=== PATIENT | female | born 1955 | race Caucasian/White ===

== ENCOUNTER 2023-03-09 16:24 | Outpatient (CLI) | payer MEDICARE, SELFPAY ==
--- NOTE | ~2023-03-09 | CT_ITS ---
EXAMINATION: CT LE RT wo con DATE: 03/09/2023 16:43 INDICATION: Right knee osteoarthritis. Preoperative planning. TECHNIQUE: Computed tomography (CT) of the right lower limb was performed without intravenous contras t. Automated exposure control and iterative reconstruction technique were employed. The dose-length p roduct was 1725.33 mGy-cm. COMPARISON: Right knee radiographs 02/15/2023 FINDINGS: The right hip demonstrates normal bone alignment. No fracture. There is mild right hip oste oarthritis. The right knee demonstrates severe osteoarthritis of the medial, lateral, and patellofemo ral compartments. There is a small knee joint effusion. There is instrumentation of right first metat arsal. IMPRESSION: 1. Severe right knee osteoarthritis. 2. Small right knee joint effusion. 3. Mild right hip osteoarthritis. Reviewed, dictated and finalized at location E.
== END 2023-03-09 16:25 | disposition home or self-care (01) ==
LOC: ANHIMG 16:28
PROVIDERS: Visit Provider Orthopaedic Surgery
DX: M17.11 Unilateral primary osteoarthritis, right knee (principal); M25.461 Effusion, right knee; M16.11 Unilateral primary osteoarthritis, right hip
CPT/HCPCS: 73700

== ENCOUNTER 2023-03-22 08:52 | Outpatient (CLI) | payer MEDICARE, SELFPAY ==
--- NOTE | 2023-03-22 09:23 | ECG_ITS ---
Measurements Intervals [place] Rate: 65 P: 42 SD: 178 QRS: 24 QRSD: 86 T: 5 QT: 401 QTc: 419 Interpretive Statements SINUS RHYTHM NO PREVIOUS ECG AVAILABLE FOR COMPARISON Electronically Signed On 03-22-2023 12:58:36 CDT by Shelly Amado M.D.
[2023-03-22 09:45] LABS: Hematocrit 39.9 % (37.0-47.0); Hemoglobin 12.9 g/dL (12.0-15.0)
[2023-03-22 09:56] LABS: Albumin Level 4.6 g/dL (3.5-5.1); Estimated Glomerular Filt Rate > 60
== END 2023-03-22 08:53 | disposition home or self-care (01) ==
PROVIDERS: Visit Provider Orthopaedic Surgery
DX: Z01.812 Encounter for preprocedural laboratory examination (principal); Z01.810 Encounter for preprocedural cardiovascular examination; M17.11 Unilateral primary osteoarthritis, right knee
CPT/HCPCS: 36415; 82040; 82565; 85014; 85018; 93005

== ENCOUNTER 2023-05-30 08:12 | Outpatient (CLI) | payer MEDICARE, SELFPAY ==
[2023-05-30 09:48] LABS: Basophils Percent Auto 0.5 % (0.2-1.2); Eosinophils Absolute Auto 0.1 K/mm3 (0-0.3); Eosinophils Percent Auto 0.9 % (0-4.4); Hematocrit 40.1 % (37.0-47.0); Hemoglobin 13.2 g/dL (12.0-15.0); Immature Granulocyte Absolute 0.02 K/mm3 (0.00-0.031); Immature Granulocyte Percent A 0.3 % (0-0.5); Lymphocytes Absolute Auto 1.85 K/mm3 (0.9-3.2); Lymphocytes Percent Auto 24.9 % (18.3-44.2); Mean Corpuscular HGB Conc 32.9 g/dl (32-36); Mean Corpuscular Volume 94.1 fl (80-100); Mean Platelet Volume 10.1 fl (7.4-10.4); Monocytes Absolute Auto 0.7 K/mm3 (0.1-0.6); Monocytes Percent Auto 9.4 % (2.6-8.5); Neutrophils Absolute Auto 4.8 K/mm3 (1.3-6.7); Platelet Count Result 256 k/mm3 (150-375); Red Blood Count 4.26 M/mm3 (4.2-5.4); Red Cell Distribution Width 13.9 % (11.5-14.5); White Blood Count 7.4 K/mm3 (4.5-10.0)
[2023-05-30 09:58] LABS: Albumin Level 4.5 g/dL (3.5-5.1); Estimated Glomerular Filt Rate > 60; Glucose 91 mg/dL (65-110)
[2023-05-30 10:03] LABS: Urine Cotinine NEGATIVE
[2023-05-30 10:17] LABS: Hemoglobin A1C 5.5 % (<5.7)
== END 2023-05-30 08:13 | disposition home or self-care (01) ==
LOC: ANHSURGERY 08:18
PROVIDERS: Visit Provider Orthopaedic Surgery
DX: M17.11 Unilateral primary osteoarthritis, right knee (principal); Z01.818 Encounter for other preprocedural examination
CPT/HCPCS: 80307; 82040; 82565; 82947; 83036; 85025; 87081

== ENCOUNTER 2023-06-19 01:38 | Day surgery (SDC) | payer MEDICARE, SELFPAY ==
--- NOTE | 2023-05-30 07:41 | PC.NURSE ---
PRE-OP INSTRUCTIONS, PLEASE READ CAREFULLY Report to the Outpatient Waiting Room, entrance under the green pavilion located off [facility], at time _0930_ on date _06/19/23_. Planned Procedure Time: _1130_. PACK A SMALL OVERNIGHT BAG AND LEAVE IN THE CAR ALONG WITH YOUR WALKER Time changes happen often and if your time is changed the preop area will call you the afternoon before. - You and your visitor will be asked to self-screen and do not enter if you have any COVID symptoms. - A mask is optional within the hospital at this time. -VISITING HOURS 8AM-8PM Patients may have clear liquids (water, carbonated beverages, clear teas, apple juice) until 3 hours prior to surgery (0830 AM) with a maximum of 20 ounces. - No food from midnight until time of surgery Take the following medications with a SIP of water the morning of surgery: _TYLENOL IF NEEDED_ DO NOT STOP ANY OF YOUR OTHER PRESCRIPTION MEDICATIONS PRIOR TO SURGERY ?EXCEPT THE FOLLOWING Medications to discontinue per DR. LOAIZA - _ALEVE 7 DAYS PRIOR TO SURGERY, Date to take last dose 06/11/23_ Medications to discontinue per ANESTHESIA - _MULTIVITAMIN & SUPPLEMENTS 3 DAYS PRIOR TO SURGERY, Date to take last dose 06/15/23_ Please no make-up, nail romanian, hairspray, perfume, deodorant, or body powder the day of surgery. No jewelry (including any body piercings) or valuables the day of surgery, leave them at home. Please take a shower or bath the night before, or the morning of, surgery with an antibacterial soap. Wear comfortable, loose fitting clothing. - Jewelry must be removed prior to entering the operating room. Rings and piercings that are not removed may be cut off. - The hospital will not accept responsibility for valuables. - Please leave all valuables, including medications, at home the day of surgery. If you are going home after surgery, a licensed limb driver must drive you home. - NO public transportation without another adult if you receive anesthesia. - We recommend that an adult stay with you for 24 hours following discharge. - We also recommend that you do not drive, make important decision, drink alcoholic beverages, or take any drugs that were not prescribed by your health care provider for at least 24 hours after your discharge time. Follow any additional instructions given to you from your surgeon. TOTAL JOINT CLASS TODAY (05/30/23) @ 10AM, [facility] ENTRANCE 2 - LOWER LEVEL If you or anyone in your household have experienced Covid symptoms in the past week, please notify your surgeon or the nurse liaison at the phone number below for possible testing. Instructions given to _PATIENT_and asked if any additional questions and then verbalized understanding. Patient advised to call surgeon office or pre surgery nurse liaison [phone] if any additional questions.
[2023-05-30 08:35] VITALS: BP 134/62; PULSE 78; RESP 18; TEMP 37.6; O2SAT 100; BMI 29.0
--- NOTE | 2023-06-18 15:48 | WPDANESEPPF ---
Anes - Initial Pre Proc Eval Procedure: Operation Date: 06/19/23 10:30 Proposed Procedures p Right Custom Total Knee Arthroplasty - Siva Méndez MD Date/Time: 06/18/23 15:48 Surgeon: Siva Méndez MD Pre Op Diagnosis: primary oa right knee Patient Data Age: 68 Gender: F Height: 1.63 m Weight: 76.6 kg Last Vital Signs Temp 37.6 C 05/30/23 08:35 Pulse 78 05/30/23 08:35 Resp 18 05/30/23 08:35 BP 134/62 05/30/23 08:35 Pulse Ox 100 05/30/23 08:35 O2 Del Method Room Air 05/30/23 08:35 Allergies Allergy/AdvReac Type Severity Reaction Status Date / Time No Known Allergies Allergy Unverified 06/19/23 08:28 Home Medications Medication Instructions Recorded Confirmed Type multivitamin 1 tablet PO DAILY 02/15/23 06/01/23 History acetaminophen 500 mg tablet 500 mg PO Q6H PRN Pain 05/30/23 06/01/23 History krill oil 1 tab-cap DAILY 05/30/23 06/01/23 History naproxen sodium 220 mg tablet 220 mg PO BID PRN Pain 05/30/23 06/01/23 History (Aleve) Patient hx anesthesia problems: none Family hx anesthesia problems: none Results Review: All pre-operative results and documents have been reviewed as part of the pre-operative evaluation. [facility] Past Medical History Medical History History of postoperative nausea and vomiting Surgical History Surgical History History of abdominoplasty History of bunionectomy History of tonsillectomy Family History Family History Grandparent Acute myocardial infarction Mother Family history of congestive heart failure Unknown Arthritis Cancer Other Diabetes mellitus Family history of arthritis Family history of malignant neoplasm of uterus Social History Social History Smoking status: Never smoker Second hand tobacco smoke exposure: No Additional smoking assessment comments: PT DENIES ALL FORMS OF TOBACCO USE Alcohol intake: current Drinks per week: 3 Alcohol use details: WINE Substance use: never Substance use type: does not use Do You Feel Safe in your Home?: Yes Lack of Transportation: No Lack of Food: Never True Current Housing: I Have Housing Concerned About Future Housing: No Difficulty Paying Gas/Electric Bills: No Difficulty Paying for Meds: No Currently Unemployed: No Education: High School Diploma/GED Difficulty w/ Childcare or Family Care: No Living arrangements: alone Additional living arrangements comments: STAYING WITH GINNA MEY[facility] OP Spiritual care concerns: No Anes - Eval Final PreProcedure Day of Procedure 06/18/23 15:48 Patient weight: overweight Heart: regular rate and rhythm Lungs: clear to auscultation Airway: Mallampati scale class II Neurological: alert and oriented Last oral intake: >/= 8 hours ASA classification: II Emergent: no Anesthetic plan: proceed Anesthesia type and monitoring: general LMA and standard monitoring Results Review: All pre-operative results and documents have been reviewed as part of the pre-operative evaluation. Informed Consent: The patient's anesthetic plan and its attendant risks and benefits were discussed with the patient/family/POA. Questions were solicited and answers provided to the satisfaction of the patient/family/POA.
[2023-06-19] VITALS (13 sets, daily range): BP systolic 124–146; BP diastolic 59–73; PULSE 67–84; RESP 12–18; TEMP 35.6–37.4; O2SAT 92–100
--- NOTE | ~2023-06-19 | XR_ITS ---
EXAMINATION: [id number] DATE: 06/19/2023 12:58 LIFE SCIENCE RESEARCH ASSISTANT INDICATION: Right total knee arthroplasty TECHNIQUE: 2 views right knee FINDINGS: There is a right total knee arthroplasty in expected position. Subcutaneous gas with fluid and air in the joint are consistent with recent surgery. No evidence of periprosthetic fracture. IMPRESSION: 1. Recent right total knee arthroplasty. Reviewed, dictated and finalized at location L. SCIENCE RESEARCH ASSISTANT
[2023-06-19] MEDS: ACETAMINOPHEN 500 MG TABLET 1000 MG PO ×3 (08:45→20:52)
[2023-06-19] MEDS: LACTATED RINGERS 1,000 ML 30 ML IV CONT ×2 (08:50→12:38)
[2023-06-19] MEDS: SCOPOLAMINE 1 MG PATCH 1 PATCH TRANSDERM (09:11)
[2023-06-19] MEDS: TRANEXAMIC ACID 1,000MG/ISO100 1,000 MG/100 ML BAG 200 MG IVPB (09:46)
--- NOTE | 2023-06-19 10:09 | WPDANESPNB ---
Anes - Peripheral Nerve Block Date/Time: 06/19/23 10:09 I have discussed with the patient/family/POA the placement of a peripheral nerve block for post-operative pain management, including associated risks, benefits, complications, and side effects. Alternative methods of post-operative analgesia were detailed. Questions were solicited and answers provided to the satisfaction of the patient/family/POA. Time-Out: A pre-procedural Time-Out was completed immediately before starting the procedure and confirmed: Patient Identification, Site, Procedure, Patient Position and the Availability of Requisite Equipment. Clinical Indications: Acute post-operative pain management requested by the operative surgeon. Nerve Block Insertion Note Anes-nerve block: adductor canal right Patient position: supine Skin prep: chlorhexidine Needle: 22 gauge, stimulating, insulated echogenic needle. Needle length: 80 mm Technique: ultrasound Injectate: bupivacaine 0.5% with epi 5 mcg/ml (30cc - no epi) Observations: tolerated well Complications: none Procedure start time:: 1013 Procedure end time:: 1016
--- NOTE | 2023-06-19 10:17 | WPDHPUPDATE1 ---
History and Physical Update Update Date/Time: 06/19/23 10:17 History and Physical has been reviewed, including an updated exam of the patient. There are NO changes in the patient's condition. Risks, benefits, and alternatives have been discussed and questions answered. Patient agrees to proceed with procedure.
[2023-06-19] MEDS: ceFAZolin 2 GM/D5W 50 ML 2 GM/50 ML BAG IVPB ×2 (10:24→17:47)
[2023-06-19] MEDS: GENTAMICIN BONE CEMENT REFOBACIN 2 EACH TOPICAL (11:00)
[2023-06-19] MEDS: fentaNYL CITRATE INJ (*CRX) 100 MCG/2 ML VIAL 25 MCG IV PUSH ×4 (12:46→13:12)
--- NOTE | 2023-06-19 12:56 | W.PM.PROC2 ---
Procedure Note - Detailed Date of Procedure 06/19/23 Pre-op Diagnosis primary oa right knee Post-op Diagnosis Same Procedure Performed Total knee arthroplasty, right. Surgeon Siva Méndez MD Anesthesia General and Regional (Subsartorial block.) Findings Severe hypertrophic disease with contracture 20-100 degrees. Osteophytes removed. Moderate medial release. Custom jigs fit optimally. Bone resections as planned. Description of Procedure Preoperative antibiotics were given. The limb was prepped and draped in the usual sterile fashion with a well-padded tourniquet high on the thigh. The limb was exsanguinated and the tourniquet inflated to 300 mmHg. A longitudinal incision was created just medial to the patella. A trivector approach to the knee was performed. Arthrotomy was taken down through the joint capsule. No significant releases were initially taken. The femur was exposed and the F1 jig was applied. The coring tool was used to remove the cartilage for the F2 jig to sit flush with the bone. The jig was pinned and the distal cut carefully taken. Caliper measurements confirmed appropriate bony resections according to the preoperative templated plan. The F4 cutting jig for the femur was applied, at the standard rotation. The AP and anterior chamfer cuts were taken. The F5 jig was applied and the posterior chamfer cuts were taken. The tibia was prepared using the T1 jig, after removing cartilage for the jig contact points. Proper alignment was checked with the alignment manny. The tibia was cut using the T1u guide. Gap balancing was performed. Gap measurements were taken and the knee was trialed. Excellent alignment and soft tissue balancing was confirmed. The posterior cruciate ligament was recessed along the proximal tibia. The patella was cut for resurfacing. Three lug holes were drilled. Meniscal remnants were removed. The trial components were assembled. Excellent range of motion and proper soft tissue balancing were confirmed throughout the full range of motion. Patellar tracking was excellent. The knee was copiously irrigated periodically throughout the procedure. The real implants were cemented into position. Excess cement was carefully removed. The wound was closed in layers with interrupted #1 Vicryl suture, #1 strata fix suture, 3-0 strata fix suture, 4-0 strata fix suture. Steri-Strips placed on the skin with the knee flexed. Sterile bulky dressing applied. The patient was brought to the recovery room in stable condition. There were no complications. Implants [employer] total knee arthroplasty. Cemented. Cruciate retaining. 8 mm insert. 35 mm oval patella. Estimated Blood Loss 20 Drains No Complications No immediate complications Condition Stable Disposition PACU [facility] Billing Surgery - Charge Forward: Surgery Billing
[2023-06-19] MEDS: SODIUM CHLORIDE 0.9% IV 1,000 ML 125 ML IV CONT (14:58)
[2023-06-19] MEDS: SENNA/DOCUSATE SODIUM TABLET 2 TAB PO (17:48)
[2023-06-19] MEDS: ASPIRIN 81 MG ENTERIC TABLET PO (17:48)
[2023-06-19] MEDS: oxyCODONE HCL (*CRX) 5 MG TAB IR PO (20:53)
[2023-06-19] MEDS: FAMOTIDINE 20 MG TABLET PO (20:53)
[2023-06-20] MEDS: ACETAMINOPHEN 500 MG TABLET 1000 MG PO ×2 (02:48→08:36)
[2023-06-20] MEDS: ceFAZolin 2 GM/D5W 50 ML 2 GM/50 ML BAG IVPB ×2 (02:49→09:19)
[2023-06-20] MEDS: oxyCODONE HCL (*CRX) 5 MG TAB IR PO (06:00)
[2023-06-20 06:05] VITALS: BP 132/82; PULSE 64; RESP 16; TEMP 36.8; O2SAT 16
[2023-06-20 06:49] LABS: Anion Gap 4 mmol/L (8-16); Blood Urea Nitrogen 13 mg/dL (7-17); Calcium 8.8 mg/dL (8.4-10.2); Carbon Dioxide 31 mmol/L (22-30); Chloride 103 mmol/L (98-107); Estimated CRCL calculation 51 ml/min; Estimated Glomerular Filt Rate > 60; Glucose 93 mg/dL (65-110); Potassium 4.8 mmol/L (3.4-5.0); Sodium 138 mmol/L (137-145)
[2023-06-20 06:55] LABS: Basophils Percent Auto 0.4 % (0.2-1.2); Eosinophils Absolute Auto 0.4 K/mm3 (0-0.3); Eosinophils Percent Auto 4.1 % (0-4.4); Hematocrit 34.6 % (37.0-47.0); Hemoglobin 11.2 g/dL (12.0-15.0); Immature Granulocyte Absolute 0.04 K/mm3 (0.00-0.031); Immature Granulocyte Percent A 0.4 % (0-0.5); Lymphocytes Absolute Auto 1.95 K/mm3 (0.9-3.2); Lymphocytes Percent Auto 19.1 % (18.3-44.2); Mean Corpuscular HGB Conc 32.4 g/dl (32-36); Mean Corpuscular Hemoglobin 30.8 pg (26-34); Mean Corpuscular Volume 95.1 fl (80-100); Mean Platelet Volume 10.3 fl (7.4-10.4); Monocytes Absolute Auto 1.3 K/mm3 (0.1-0.6); Monocytes Percent Auto 12.2 % (2.6-8.5); Neutrophils Absolute Auto 6.5 K/mm3 (1.3-6.7); Neutrophils Percent Auto 63.8 % (45.5-73.1); Platelet Count Result 242 k/mm3 (150-375); Red Blood Count 3.64 M/mm3 (4.2-5.4); Red Cell Distribution Width 13.4 % (11.5-14.5); White Blood Count 10.2 K/mm3 (4.5-10.0)
[2023-06-20 07:37] VITALS: BP 100/61; PULSE 70; RESP 16; TEMP 35.9; O2SAT 100
--- NOTE | 2023-06-20 08:09 | PM.DS ---
DS: Admitting Diagnosis Discharge Date 06/20/22 Admitting Diagnosis OA knee Right DS: Discharge Diagnosis Discharge Diagnosis (1) Status post total right knee replacement: Code(s): Z96.651 - Presence of right artificial knee joint Status: Acute Assessment and Plan: Postop day 1: Right total knee arthroplasty. Patient tolerated procedure well. No complications. Pain manageable with pain medication. No numbness or tingling. We had a lengthy discussion regarding postoperative wound care, limitations, expectations, and exercises. Patient shows good understanding. She has had initial physical therapy and is tolerating it well. DVT prophylaxis: 81 mg baby aspirin b.i.d. for 14 days. Compression socks. Pain medication: Percocet. Naproxen. Prednisone. Patient has followup appointment with Dr. Méndez in 3 weeks. DS: Summary Hospital Course Reason for hospitalization: Total knee arthroplasty Hospital Course: Patient tolerated procedure well. Has had initial PT/OT. No complications. Pain well managed. Status at Discharge Functional status at discharge: uses cane/walker Overall status at discharge: patient is progressing back to baseline Time Spent with Patient Time attestation: Total time spent providing and/or coordinating discharge services: Exam Narrative: Normal weight 68 y/o female. Resting comfortably in bed. No acute distress. A&O x3. Wearing compression socks bilaterally. Dressing intact with no drainage. Moderate swelling. Mild ecchymosis. No erythema. No hematoma. Good early range of motion. Calf nontender. Neurologic status intact. No varicosities. Distal pulses palpable. Quad fires. DS: Data Data Completed and Pending Labs on day of discharge: Labs from last 24 hours 06/20/23 06/19/23 06:04 08:37 WBC 10.2 H RBC 3.64 L Hgb 11.2 L Hct 34.6 L MCV 95.1 MCH 30.8 MCHC 32.4 RDW 13.4 Plt Count 242 MPV 10.3 Immature Gran % (Auto) 0.4 Neut % (Auto) 63.8 Lymph % (Auto) 19.1 Pratt % (Auto) 12.2 H Eos % (Auto) 4.1 Baso % (Auto) 0.4 Lymph # (Auto) 1.95 Pratt # (Auto) 1.3 H Eos # (Auto) 0.4 H Baso # (Auto) 0.0 Abs Immat Gran (auto) 0.04 H Absolute Neuts (auto) 6.5 Absolute Nucleated RBC 0.0 Nucleated RBC % 0.0 Sodium 138 Potassium 4.8 Chloride 103 Carbon Dioxide 31 H Anion Gap 4 L BUN 13 Creatinine 0.90 Estim Creat Clear Calc 51 Estimated GFR > 60 Glucose 93 Calcium 8.8 Blood Type A Negative Antibody Screen Negative Discharge Plan Discharge Patient Disposition: Home, Self-Care Discharge Instructions: Remove the Scopolamine patch that was placed behind your left ear in 72 hours or less. Wash your hands after touching. See green instruction sheets Stand Alone Forms: General Discharge Instructions Follow-up/Referrals: Alyssa Goodrich PA [Physician Screen Printer Helper] - Discharge Medications: New prednisone 5 mg tablet 5 mg PO DAILY 21 Days Qty: 21 0RF aspirin 81 mg tablet,delayed release (DR/EC) 81 mg PO BID 14 Days Qty: 28 0RF oxycodone-acetaminophen 5-325 mg tablet 1 - 2 tablet PO Q4-6H MDD 6 PRN (Reason: pain) Qty: 30 0RF Continued multivitamin Tablet 1 tablet PO DAILY acetaminophen 500 mg Tablet 500 mg PO Q6H PRN (Reason: Pain) naproxen sodium [Aleve] 220 mg Tablet 220 mg PO BID PRN (Reason: Pain) krill oil 1 tab-cap DAILY
[2023-06-20] MEDS: SENNA/DOCUSATE SODIUM TABLET 2 TAB PO (08:36)
[2023-06-20] MEDS: predniSONE 5 MG TABLET PO (08:36)
[2023-06-20] MEDS: ASPIRIN 81 MG ENTERIC TABLET PO (08:36)
[2023-06-20] MEDS: FAMOTIDINE 20 MG TABLET PO (08:36)
--- NOTE | 2023-06-20 09:27 | WPDANESPN ---
Anes - Prog Note Post-Op Date/Time: 06/20/23 09:27 Cardiovascular status: normal Respiratory status: normal Airway patency: baseline Mental status: baseline Post-Op hydration status: normal Vital Signs: Last Vital Signs Temp 35.9 C L 06/20/23 07:37 Pulse 70 06/20/23 07:37 Resp 16 06/20/23 07:37 BP 100/61 06/20/23 07:37 Pulse Ox 100 06/20/23 07:37 O2 Del Method Room Air 06/20/23 08:33 O2 Flow Rate 6 06/19/23 13:05 Pain Score (VAS): 08/04 I/O: Intake & Output 06/19/23 06/20/23 06/20/23 23:59 07:59 15:59 Intake Total 50 350 840 Balance 50 350 840 Laboratory Tests 06/20/23 06:04 06/20/23 06:04 06/19/23 06/20/23 08:37 06:04 WBC 10.2 H RBC 3.64 L Hgb 11.2 L Hct 34.6 L MCV 95.1 MCH 30.8 MCHC 32.4 RDW 13.4 Plt Count 242 MPV 10.3 Immature Gran % (Auto) 0.4 Neut % (Auto) 63.8 Lymph % (Auto) 19.1 Schleicher % (Auto) 12.2 H Eos % (Auto) 4.1 Baso % (Auto) 0.4 Lymph # (Auto) 1.95 Schleicher # (Auto) 1.3 H Eos # (Auto) 0.4 H Baso # (Auto) 0.0 Abs Immat Gran (auto) 0.04 H Absolute Neuts (auto) 6.5 Absolute Nucleated RBC 0.0 Nucleated RBC % 0.0 Sodium 138 Potassium 4.8 Chloride 103 Carbon Dioxide 31 H Anion Gap 4 L BUN 13 Creatinine 0.90 Estim Creat Clear Calc 51 Estimated GFR > 60 Glucose 93 Calcium 8.8 Blood Type A Negative Antibody Screen Negative Post-procedural complaints: none Patient Feedback: Patient satisfied with anesthetic care.
== END 2023-06-20 11:14 | disposition home or self-care (01) ==
LOC: ANHSURGERY 09:11 → ANH3MEDSUR 14:25
PROVIDERS: Physician Assistant Surgical; Visit Provider Orthopaedic Surgery
PROC: (CPT 27447; principal; 2023-06-19 10:30)
DX: M17.11 Unilateral primary osteoarthritis, right knee (principal); G89.18 Other acute postprocedural pain
CPT/HCPCS: 27447; 64447; 36415; 73560; 80048; 85025; 86850; 86900; 86901; 97110; 97161; 97165; A9270; C1713; C1776; J0171; J0690; J1100; J1170; J1596; J1885; J2250; J2270; J2371; J2405; J2704; J2795; J3010; J7030; J7120; J7512

== ENCOUNTER 2024-08-27 11:58 | Outpatient (CLI) | payer MEDICARE, SELFPAY ==
[2024-08-27 13:10] LABS: Basophils Absolute Auto 0.1 K/mm3 (0.0-0.1); Basophils Percent Auto 0.8 % (0.2-1.2); Eosinophils Absolute Auto 0.1 K/mm3 (0-0.3); Eosinophils Percent Auto 1.6 % (0-4.4); Hematocrit 40.9 % (37.0-47.0); Hemoglobin 13.2 g/dL (12.0-15.0); Immature Granulocyte Absolute 0.02 K/mm3 (0.00-0.031); Immature Granulocyte Percent A 0.3 % (0-0.5); Lymphocytes Absolute Auto 2.15 K/mm3 (0.9-3.2); Lymphocytes Percent Auto 35.2 % (18.3-44.2); Mean Corpuscular HGB Conc 32.3 g/dl (32-36); Mean Platelet Volume 9.7 fl (7.4-10.4); Monocytes Absolute Auto 0.5 K/mm3 (0.1-0.6); Monocytes Percent Auto 7.4 % (2.6-8.5); Neutrophils Absolute Auto 3.3 K/mm3 (1.3-6.7); Neutrophils Percent Auto 54.7 % (45.5-73.1); Platelet Count Result 263 k/mm3 (150-375); Red Cell Distribution Width 13.3 % (11.5-14.5); White Blood Count 6.1 K/mm3 (4.5-10.0)
[2024-08-27 13:23] LABS: Urine Cotinine NEGATIVE
--- OUTSIDE RECORDS SUMMARY | 2024-08-27 13:26 | XMS_ITS | Data Portability ---
Author Organization [facility], [address] [facility] ([place]) Address [address] [place] [address] Care Team Providers Care Body Maker Name Role Phone ELDA JACK Primary Care Provider [phone] Assessment Encounter Date Assessment Date Assessment LastModified by Organization Details LastModified Time 05/07/2024 05/07/2024 HISTORY OF PRESE NT ILLNESS: She has noticed that her nose is a little red, so she wants that checked very closely and then she is here for her full skin check. She really does try to use sun protective measures, sunscreen, etc. PHYSICAL EXAMINATION: CONST: Alert and oriented. EYES: No icterus. ENT: Oral mucosa pink and moist. RESP: Breathing appears normal. No use of accessory muscles. MSK: Head: Atraumatic. Normocephalic. SKIN: Examination performed over skin of the scalp and hair, face, eyelids, lips, ears, neck, chest, abdomen, back, hands, fingernails, both upper extremities, buttocks, feet, toenails, and both lower extremities. The patient looks younger than her stated age. She has mild redness on the nose. Two pinpoint right papules were seen. Some stuck on appearing brown patches on her trunk. No other suspicious lesions. PSYCH: Stable mood and affect. NEURO: No speech difficulty. Reviewed pertinent diagnostic tests, lab work, and imaging. These were reviewed with the patient. PLAN: 1. Rosacea, very mild. She is going to start MetroLotion twice a day. 2. Seborrheic keratoses on the trunk. Reassured benign. No treatment. She is going to have a skin check in two years. She uses sun protective measures. Call with anything new or suspicious. 3. She just had cataract surgery so she is going to talk to her reading efficiency course director about possibly having blepharoplasty. [email or web address] Not available 2024 04:24:54 Plan of Treatment Reminders Order Date Submit Date Provider Last Modified By Organization Details Last Modified Time Details Appointments Establish ed Patient SARAVANAN 2025 09:30A M Dr. Krystina Suazo Not available Not available Not available Lab None recorded. Referral None recorded. Procedures None recorded. Surgeries None recorded. Imaging None recorded. Medication Orders MetroLoti on 0.75 % topical 2023 024 [email or web address] [facility][id number], [address] [place], [address], 05/07/2024 11:37:45 Patient TargetsNo targets recorded. Patient InstructionsNo instructions recorded. Reason for Referral None Reported. Problems Name Problem SNOMED Code Status Onset Date Resolution Date Notes Provider Name and Address Organization Details Recorded Time Actinic keratosis Completed 04/29/2024 Charley Estrada [facility] 15:14:49 Seborrheic keratosis 436491791 Completed 04/29/2024 [facility] 01:37:22 Solar degenerati on [id number] Completed 04/29/2024 Charley Estrada [facility] 4 15:15:04 Rosacea 719549606 Active 2023 Ophelia Flores [facility] 4 10:54:35 Seborrheic keratosis 292706641 Active 2023 [facility] 01:37:22 Problem Notes None recorded. Medical Equipment None Reported. Allergies No known drug allergies Medications Name Sig Start Date Stop Date Status Note LastModified by Organization Details LastModified Time prednisone 5 mg tablet TAKE 10 TABS BY MOUTH DAIY 1 AND DECREASE BY 1 TABLET DAILY UNTIL FINISHED 05/07 completed Not Available Not Available Not Available ciprofloxac in 250 mg tablet TAKE 1 TABLET BY MOUTH 2 TIMES DAILY FOR 5 DAYS. STOP MACROBID 05/07 completed Not Available Not Available Not Available aspirin 81 mg tablet,antonio yed release 81 MG ORALLY TWICE A DAY FOR 14 DAYS 05/07 completed Not Available Not Available Not Available oxycodone-a cetaminophe n 5 mg-325 mg tablet 1 - 2 TABLETS ORALLY EVERY 4 - 6 HOURS NEEDED FOR PAIN, MAX DAILY DOSE: 6 05/07 completed Not Available Not Available Not Available tobramycin 0.3 % eye drops PLEASE SEE ATTACHED FOR DETAILED DIRECTION S 05/07 completed Not Available Not Available Not Available MetroLotion 0.75 % topical apply bid 2023 active Not Available Not Available Not Avai lable nitrofurant oin monohydrate /macrocryst als 100 mg capsule TAKE 1 CAPSULE BY MOUTH 2 TIMES DAILY FOR 5 DAYS. INDICATIO NS: URINARY TRACT INFECTION 05/07 completed Not Available Not Available Not Available Refresh active Not Available Not Avail able Not Available multivitami n active Not Available Not Available Not Available krill oil active Not Available Not Tameka ilable Not Available bromfenac 0.07 % eye drops 1 DROP IN OPERATIVE EYE ONCE DAILY START 2 DAYS BEFORE SURGERY, CONTINUIN G UNTIL 2 WEEKS 05/07 completed Not Available Not Available Not Available Lotemax SM 0.38 % eye gel drops 1 DROP IN OPERATIVE EYE 4 TIMES DAILY STARTING AFTER SURGERY SEE PHARM NOTE 05/07 completed Not Available Not Available Not Available Vitals None Recorded Social History None recorded. Functional Status None recorded. Mental Status None recorded. Family History Nothing Reported. Medical History No medical history recorded. Gynecological HistoryNo gynecological history recorded. Obstetrics History GPAL:G 0 P 0 0 0 0 Past Encounters Encounter ID Performer Location Encounter Start Date Encounter Closed Date Diagnosis/Indication Diagnosis SNOMED-CT Code Diagnosis ICD10 Code Diagnosis Note [id number] Krystina Suazo MD [facility] ([place]) [address] [place] [address] 05/07/2024 10:22:39 05/07/2024 11:02:49 Rosacea 906435209 L71.9 Seborrheic keratosis 394 777658 L82.1 Health Concerns Section Related Observation LastModified by Organization Detai ls LastModified Time None Recorded Concern Status LastModified by Organization Details LastModified Time None Recorded Advance Directives Directive None Recorded Payers Encounter Date Sequence Insurance Name Policy Number Policy Pena Covered Member ID Pena Member ID Guarantor Name 05/07/2024 1 [place] Trinidad Laguna [id number] Trinidad Laguna 05/07/2024 2 [employer] (MEDICARE SUPPLEMENT) Trinidad Laguna [id number] Trinidad Laguna OBGyn Episode No OBEpisode recorded.
--- OUTSIDE RECORDS SUMMARY | 2024-08-27 13:26 | XMS_ITS | Clinical Summary ---
Author Organization [facility] Address [address] [place] [id number] Care Team Providers Care Quality Assurance Monitor Body Name Role Phone Jagdish Motta MD Primary Care Provider [phone] Allergies No known active allergies Medications No known medications Active Problems No known active problems Social History Tobacco Use Types Packs/Day Years Used Date Smoking Tobacco: Never Smokeless Tobacco: Never Tobacco Cessation:Counseling Given: Yes Alcohol Use Standard Drinks/Week Comments Yes 0 (1 standard drink = 0.6 oz pur e alcohol) wine nightly Alcohol Use Answer Date Recorded Frequency of Alcohol Consumption Not on file 10/20/2021 Average Number of Drinks Not on file 022 Frequency of Binge Drinking Not on file 09/26 Alcohol Use Status Yes 10/20/2021 Average alcohol consumption Not on file 09/26 Sex and Gender Information Value Date Recorded Sex Assigned at Not on file Gender Identity Not on file Sexual Orientation Not on file Last Filed Vital Signs Vital Sign Reading Time Taken Comments Blood Pressure 118/62 02/01/2022 8:24 AM CDT Pulse 52 12/01/2021 9:51 AM CDT Temperature 36.4 C (97.6 F) 12/01/2021 9:21 AM CDT Respiratory Rate 16 12/01/2021 9:51 AM CDT Oxygen Saturation 98% 12/01/2021 9:51 AM CDT Inhaled Oxygen Concentration - - Weight 71.9 kg (158 lb 9.6 oz) 02/01/2022 8:24 A M CDT Height 165.1 cm (5' 5 ) 02/01/2022 8:24 AM CDT Body Mass Index 26.39 02/01/2022 8:24 AM CDT Plan of Treatment Health Maintenance Due Date Last Done Comments Hepatitis C Screening ages 1 8 to 79 once 1954 YEARLY WELLNESS EXAM 1957 DEPRESSION SCREENING 1966 ADULT TETANUS 1973 BREAST CANCER SCREENING 1994 Colon Cancer Screening 1999 LIPID TESTING 1999 Zoster Vaccine (Recombinant Vaccine) (1 of 2) 2004 DEXA SCAN SCREENING 2019 Fall Risk Assessment 2019 Pneumococcal Vaccine: 65+ Ye ars (1 of 1 - PCV) 2019 Influenza Vaccine 12/27/2023 COVID-19 Immunization (1 - 2 024-25 season) 2024 RSV Vaccines (1 - 1-dose 75+ series) 2029 HEPATITIS A VACCINES Aged Out No long er eligible based on patient's age to complete this topic HEPATITIS B VACCINES Aged Out No long er eligible based on patient's age to complete this topic HIB VACCINES Aged Out No longer eligi ble based on patient's age to complete this topic HPV VACCINES Aged Out No longer eligi ble based on patient's age to complete this topic IPV VACCINES Aged Out No longer eligi ble based on patient's age to complete this topic MENINGOCOCCAL VACCINE Aged Out No carol raad eligible based on patient's age to complete this topic ROTAVIRUS VACCINES Aged Out No longer eligible based on patient's age to complete this topic Care Teams Quality Assurance Monitor Body Relationship Specialty Start Date End Date Jagdish Motta MD [address] [address] PCP - General Obstetrics & Gynecology 10/06/11
--- OUTSIDE RECORDS SUMMARY | 2024-08-27 13:26 | XMS_ITS | Clinical Summary ---
Author Organization [facility] Address [address] [place] [address] Care Team Providers Care Valet Cashier Name Role Phone Amy Ascencio WAREHOUSE DIRECTOR Primary Care Provider + Allergies No known active allergies Medications vitamin D3-vitamin K2 25 mcg (1,000 unit)-90 mcg tablet,disinteg rating Take by mouth Active vitamin B complex no.9-iqvlf-V-bi otin 1-60-300 mg-mg-mcg tabletIndicatio ns:Vitamin Deficiency Prevention 1 tablet Active multivitamin-Ca -iron-minerals 18-0.4 mg tablet Take by mouth Active donepeziL (ARICEPT) 10 mg tablet Take 1 tablet (10 mg total) by mouth daily Take 1/2 tablet daily in the morning with food for the first month 30 tablet 11 02/18/2024 5 Active Active Problems No known active problems Social History Tobacco Use Types Packs/Day Years Used Date Smoking Tobacco: Never Tobacco Cessation:Counseling Given: Not Answered Personal Safety Answer Date Recorded Getting School Help Needed Not on file 07/28 Comments Unknown Sex and Gender Information Value Date Recorded Sex Assigned at Not on file Legal Sex Female 11:12 AM CDT Gender Identity Not on file Sexual Orientation Not on file Obstetrics History Last Filed Vital Signs Vital Sign Reading Time Taken Comments Blood Pressure 135/77 01/23/2024 1:42 PM CDT Pulse 69 01/23/2024 1:42 PM CDT Temperature - - Respiratory Rate - - Oxygen Saturation - - Inhaled Oxygen Concentration - - Weight 75.7 kg (166 lb 12.8 oz) 01/23/2024 1:42 PM CDT Height 165.1 cm (5' 5 ) 01/23/2024 1:42 PM CDT Body Mass Index 27.76 01/23/2024 1:42 PM CDT Plan of Treatment Health Maintenance Due Date Last Done Comments Breast Cancer Screening-Mammogram 1954 Colon Cancer Screening-Colonoscopy 1954 Depression Screening 1954 Fall Risk Assessment 1954 Hepatitis C Screening 1954 Osteoporosis Screening-Bone Density Scan 1954 Hepatitis B Screening 1972 Pneumococcal vaccine 65+ (1 of 1 - PCV) 2004 Zoster Vaccine (1 of 2) 2004 Well Visit 65+ 2019 Influenza Vaccine (Season Ended) 2025 DTaP/Tdap/Td Vaccine (2 - Td or Tdap) 11/03/202501/2016, 09/25/2005 Insurance [employer] MEDICARE MEDICARE [employer] Care Teams Valet Cashier Relationship Specialty Start Date End Date Amy Ascencio NP [address] [place] [address] PCP - General Nurse Practitioner 09/07/23
--- OUTSIDE RECORDS SUMMARY | 2024-08-27 13:26 | XMS_ITS | Clinical Summary ---
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 Gender Identity Not on file Sexual Orientation Not on file Last Filed Vital Signs Vital Sign Reading Time Taken Comments Blood Pressure 137/64 09/03/2019 5:42 PM CDT Pulse 81 09/03/2019 5:42 PM CDT Temperature 37.2 C (98.9 F) 09/03/2019 5:42 PM CDT Respiratory Rate 16 09/03/2019 5:42 PM CDT Oxygen Saturation 95% 09/03/2019 5:42 PM CDT Inhaled Oxygen Concentration - - Weight 77.6 kg (171 lb) 09/03/2019 5:42 PM CDT Height 167.6 cm (5' 6 ) 09/03/2019 5:42 PM CDT Body Mass Index 27.6 09/03/2019 5:42 PM CDT Plan of Treatment Not on file Insurance MEDICARE [facility] [place] MEDICARE [facility] Care Teams Utilization Engineer Relationship Specialty Start Date End Date Identified, No Provider PCP - General 09/03/19
--- OUTSIDE RECORDS SUMMARY | 2024-08-27 13:26 | XMS_ITS | Clinical Summary ---
Author Organization [facility] Address [address] [place] [address] Phone Care Team Providers Care Landing Scaler Name Role Phone Amy Ascencio PROGRAM DIRECTOR GROUP WORK, MANAGER UNIT Primary Care Pro vider Allergies No known active allergies Medications Multivitamin-Min erals Tablet Take 1 Tablet by mouth daily. Active B Kwtlyju-G-Vfjwl Acid (Na-Adina Rx) 1 MG Tablet Take 1 Tablet by mouth daily. Active other by Other route. Lion's genie powder daily for memory Active Active Problems Problem Noted Date Diagnosed Date Memory loss 03/14/2024 Overview (03/14/2024): SLADILSON 03-14-24 Seen at [facility] 12/2023, had MRI. Taking OTC supplement Colonic polyp (5 year recall due 11/2026) 022 Overview (03/14/2024): 12/01/2021 colonoscopy: Three small sessile polyps removed by cold excisional biopsy polypectomy, 1 ascending colon 3-4 mm polyp and 2 transverse colon polyps in the size range of 4-5 mm removed by cold excisional biopsy polypectomy and sent for histology in 1 cup labeled as colon polyps Multiple sigmoid diverticula, slightly prominent internal hemorrhoids, otherwise normal exam to the cecum with adequate prep, normal distal ileum exam. Slightly redundant colon. Hiatal hernia 11/25/2021 Overview (03/14/2024): 12/01/2021 EGD: Tiny hiatal hernia, gastritis with the erythema and minimal erosions in the gastric antrum Otherwise normal exam. GE junction about 38 cm from the gums. Duodenal aspirate for culture, duodenum and gastric biopsies for histology submitted Osteopenia 10/19/2021 Immunizations Immunization Administration Dates Next Due TDAP Vaccine 11/04/2015 Td Vaccine (preservative free) 09/25/2005 Family History Medical History Relation Name Comments Heart Attack Father Lung Cancer Father Heart Disease Mother Other-comment Sister Parth Ramos Diseas e Relation Name Status Comments Father Mother Sister Social History Tobacco Use Types Packs/Day Years Used Date Smoking Tobacco: Never Passive Smoke Exposure: Past Smokeless Tobacco: Never Tobacco Cessation:Counseling Given: Not Answered Alcohol Use Standard Drinks/Week Comments Yes 0 (1 standard drink = 0.6 oz pur e alcohol) Occasionally [employer] Utilities Answer Date Recorded In the past 12 months has e [employer], gas, oil, or water company threatened to shut off services in your home? No 03/14/2024 Social Connection and Isolat ion Panel [NHANES] Answer Date Recorded In a typical week, how many times do you talk on the phone with family, friends, or neighbors? More than three times a week 03/14/2024 How often do you get togethe r with friends or relatives? More than three times a week 03/14/2024 How often do you attend chur ch or voodoo services? More than 4 times per year 03/14/2024 Do you belong to any clubs o r organizations such as yazidism groups, unions, fraternal or athletic groups, or school groups? Yes 03/14/2024 How often do you attend meet ings of the clubs or organizations you belong to? More than 4 times per year 03/14/2024 Are you , , di vorced, , never , or living with a partner? 03/14/2024 AUDIT-C Answer Date Recorded Q1: How often do you have a drink containing alc ohol? 2-4 times a month 03/14/2024 Q2: How many drinks containi ng alcohol do you have on a typical day when you are drinking? 1 or 2 03/14/2024 Q3: How often do you have si x or more drinks on one occasion? Never 03/14/2024 Overall Financial Resource Strain (CARDIA) Answe r Date Recorded How hard is it for you to pa y for the very basics like food, housing, medical care, and heating? Not hard at all 03/14/2024 [facility] Ong of Occupat [facility] - Occupational Stress Questionnaire Answer Date Recorded Do you feel stress - tense, restless, nervous, or anxious, or unable to sleep at night because your mind is troubled all the time - these days? Only a little 03/14/2024 Exercise Vital Sign Answer Date Recorde d On average, how many days pe r week do you engage in moderate to strenuous exercise (like a brisk walk)? 7 days 03/14/2024 On average, how many minutes do you engage in exercise at this level? 30 min 03/14/2024 Hunger Vital Sign Answer Date Recorded Within the past 12 months, y ou worried that your food would run out before you got the money to buy more. Never true 03/14/20 24 Within the past 12 months, t he food you bought just didn't last and you didn't have money to get more. Never true 03/14/2024 PRAPARE - Transportation Answer Date Re corded In the past 12 months, has l ack of transportation kept you from medical appointments or from getting medications? No 02/25 In the past 12 months, has l ack of transportation kept you from meetings, work, or from getting things needed for daily living? No 03/14/2024 Housing Stability Vital Sign Answer Chuy e Recorded In the last 12 months, was t here a time when you were not able to pay the mortgage or rent on time? No 03/14/2024 Number of Times Moved in the Last Year Not on fi le 03/14/2024 At any time in the past 12 m [facility], were you homeless or living in a [facility] (including now)? No 03/14/2024 Comments No Sex and Gender Information Value Date Recorded Sex Assigned at Female 03/13/2024 9:47 AM CDT Legal Sex Female 11:15 AM CDT Gender Identity Female 03/13/2024 9:47 AM CDT Sexual Orientation Not on file Last Filed Vital Signs Vital Sign Reading Time Taken Comments Blood Pressure 102/70 03/14/2024 9:22 AM CDT Pulse 75 03/14/2024 9:22 AM CDT Temperature 36.5 C (97.7 F) 03/14/2024 9:22 AM CDT Respiratory Rate 16 03/14/2024 9:22 AM CDT Oxygen Saturation 98% 03/14/2024 9:22 AM CDT Inhaled Oxygen Concentration - - Weight 72.7 kg (160 lb 3.2 oz) 03/14/2024 9:22 A M CDT Height 163.5 cm (5' 4.37 ) 03/14/2024 9:22 AM CD T Body Mass Index 27.18 03/14/2024 9:22 AM CDT Plan of Treatment Upcoming Encounters Date Type Department Care Team (Late st Contact Info) Description 03/24/2025 9:30 AM CDT Office Visit [facility] [address] [place] [address] Amy Ascencio, PROGRAM DIRECTOR GROUP WORK, MANAGER UNIT [address] [place] [address] Health Maintenance Due Date Last Done Comments Cologuard 2004 Immunochemical Fecal Occult Blood 2004 Mammogram 03/20/2025 03/20/2024, 10/19/2021 Td Immunization Every 10 Yea rs (Adults With 1 Tdap) 11/03/2025 11/04/2015, 09/25/2005 DEXA Bone Density 03/20/2026 03/20/2024, 10/19/2021 Colonoscopy 12/01/2026 12/01/2021 Colorectal Cancer Screening 12/01/2026 Respiratory Syncytial Virus (RSV) Immunization (Adult) (1 - 1-dose 75+ series) 2029 DTaP/Tdap/Td Immunization Discontinued 2015, 09/25/2005 Hepatitis B Immunization Aged Out No longer eligible based on patient's age to complete this topic Hepatitis C Virus (HCV) Screening Discontinued Influenza Immunization Discontinued Meningococcal Immunization (ACWY) Aged Out No longer eligible based on patient's age to complete this topic Pneumococcal Immunization (5 0+ years) Discontinued Rotavirus Immunization Aged Out No lo nger eligible based on patient's age to complete this topic SARS-COV-2 Immunization Discontinued Zoster Immunization Discontinued Goals Goal Patient Goal Type Associated Problems Recent Progress Patient-Stated? Author Annual appointment with Primary Care Provider Annual Wellness Visit Amy Oscar, ABEBA, RENEE Procedures Procedure Name Priority Date/Time Associated Diagnosis Comments [facility] SCREENING BILATERAL DIGITAL W CAD W DOUGLAS Routine 03/20/2024 8:18 AM CDT Screening mammogram for breast cancer [facility] BONE DENSITOMETRY AXIAL SKELETON Routine 03/20/2024 8:18 AM CDT Post-menopausal from Last 3 Months or Most Recently Relevant to Health Maintenance Results * [facility] SCREENING BILATERAL DIGITAL W CAD W DOUGLAS (03/20/2024 8:18 AM CDT) Anatomical Region Laterality Modality breast Bilateral Mammography 03/20/2024 7:39 AM CDT Impressions 03/21/2024 9:53 AM CDT NO MAMMOGRAPHIC EVIDENCE OF MALIGNANCY. THEREFORE, CONTINUED ROUTINE ANNUAL MAMMOGRAM SCREENING IS RECOMMENDED UNLESS CLINICALLY INDICATED SOONER. ACR Birads Category: 1 - Negative. Electronically signed by: Eder Cintron MD 03/21/2024 09:53 AM CDT RP [facility] 03/21/2024 9:53 AM CDT EXAMINATION: [facility] SCREENING BILATERAL DIGITAL W CAD W DOUGLAS Date: 03/20/2024 7:39 AM CDT CLINICAL HISTORY: 68 years Female,Encounter for screening mammogram for malignant neoplasm of breast COMPARISON: 10/19/2021 TECHNIQUE: 2-D and 3-D digital mammography performed bilaterally in the MLO and CC projections with CAD FINDINGS: There are scattered areas of fibroglandular density. No dominant mass, architectural distortion or calcifications of the malignant type. Soft tissue biopsy marker again visualized within the upper outer quadrant of the left breast. The breast cancer lifetime risk score is 3.9% (Dee model). IMPRESSION: us Amy Ascencio APRN, CNP IMG MAMMO ORDERAB LES Final Result * [facility] BONE DENSITOMETRY AXIAL SKELETON (03/20/2024 8:18 AM CDT) Anatomical Region Laterality Modality BODY N/A Other 03/20/2024 7:40 AM CDT Impressions 03/21/2024 10:55 AM CDT * Osteopenia and increased fracture risk. * FRAX score 10 year probability for major osteoporotic fracture of 8.7 % and 0.9% for hip fracture. * Age-matched Z score is within the expected range by WHO criteria. The NOF recommends that FDA approved medical therapies be considered in men and post menopausal women greater than or equal to 50 years old with a: -hip or vertebral fracture, or -T score of less than or equal to -2.5 of the spine or hip, or -10 year fracture probability by FRAX of: *greater than or equal to 20% for major osteoporotic fractures or *greater than or equal to 3% and for hip fractures. All treatment decisions require clinical judgment and consideration of individual patient factors, including patient preferences, comorbidities, previous drug use, risk factors not captured in the FRAX registered model such as frailty, falls, vitamin D deficiency, increased bone turnover, and interval significant decline in bone density, and possible under or over estimation of fracture risk by FRAX. Electronically signed by: Eder Cintron MD 03/21/2024 10:55 AM CDT [facility] 03/21/2024 10:55 AM CDT EXAMINATION: [facility] BONE DENSITOMETRY AXIAL SKELETON CLINICAL HISTORY: 68 years Female,Asymptomatic menopausal state COMPARISON: 10/19/2021 TECHNIQUE: Dual energy x-ray absorptiometry of the lumbar spine and both hips FINDINGS: Evaluation of the lumbar spine gives an average bone mineral density of 1.265 g/sq cm with a T-score of +0.7 falling in the range of normal. Age-matched Z score of +2.1 and within the expected range by WHO criteria. Interval -0.2% change in BMD and not statistically significant. Evaluation of the right hip gives a total bone mineral density of 0.872 g/sq cm with a T-score of -1.1 falling in the range of osteopenia and increased fracture risk. Age-matched Z score of +0.2 and within the expected range by WHO criteria. Interval -3.5% change in BMD and not statistically significant. Evaluation of the left hip gives a total bone mineral density of 0.854 g/sq cm with a T-score of -1.2 falling in the range of osteopenia and increased fracture risk. Age-matched Z score of 0.0 and within the expected range by WHO criteria. Interval -5.5% change in BMD and not statistically significant. FRAX score gives a 10 year probability for major osteoporotic fracture of 8.7 % and 0.9% for hip fracture. IMPRESSION: Procedure Note Eder Cintron MD - 03/21/2024 EXAMINATION: [facility] BONE DENSITOMETRY AXIAL SKELETON CLINICAL HISTORY: 68 years Female,Asymptomatic menopausal state COMPARISON: 10/19/2021 TECHNIQUE: Dual energy x-ray absorptiometry of the lumbar spine and bothhips FINDINGS: Evaluation of the lumbar spine gives an average bone mineral density of1.265 g/sq cm with a T-score of +0.7 falling in the range of normal.Age-matched Z score of +2.1 and within the expected range by WHO criteria.Interval -0.2% change in BMD and not statistically significant. Evaluation of the right hip gives a total bone mineral density of 0.872g/sq cm with a T-score of -1.1 falling in the range of osteopenia andincreased fracture risk. Age-matched Z score of +0.2 and within theexpected range by WHO criteria. Interval -3.5% change in BMD and notstatistically significant. Evaluation of the left hip gives a total bone mineral density of 0.854g/sq cm with a T-score of -1.2 falling in the range of osteopenia andincreased fracture risk. Age-matched Z score of 0.0 and within theexpected range by WHO criteria. Interval -5.5% change in BMD and notstatistically significant. FRAX score gives a 10 year probability for major osteoporotic fracture of8.7 % and 0.9% for hip fracture. IMPRESSION: * Osteopenia and increased fracture risk. * FRAX score 10 year probability for major osteoporotic fracture of 8.7 %and 0.9% for hip fracture. * Age-matched Z score is within the expected range by WHO criteria. The NOF recommends that FDA approved medical therapies be considered inmen and post menopausal women greater than or equal to 50 years old witha: -hip or vertebral fracture, or -T score of less than or equal to -2.5 of the spine or hip, or -10 year fracture probability by FRAX of: *greater than or equal to 20% for major osteoporotic fractures or *greater than or equal to 3% and for hip fractures. All treatment decisions require clinical judgment and consideration ofindividual patient factors, including patient preferences, comorbidities,previous drug use, risk factors not captured in the FRAX registered modelsuch as frailty, falls, vitamin D deficiency, increased bone turnover, andinterval significant decline in bone density, and possible under or overestimation of fracture risk by FRAX. Electronically signed by: Eder Cintron MD 03/21/2024 10:55 AM CDT RPWorkstation: [id number] us Amy Ascencio APRN, CNP IMPortia DEXA ORDERABL ES Final Result from Last 3 Months or Most Recently Relevant to Health Maintenance Insurance MEDICARE [facility] INS & FIN resistance welding machine operator Care Teams Landing Scaler Relationship Specialty Start Date End Date Amy Ascencio APRN, CNP [address] [place] [phone] PCP - General Advanced Practice Nurse 03/13/22
--- OUTSIDE RECORDS SUMMARY | 2024-08-27 13:26 | XMS_ITS | Referral Summary ---
Author Organization [facility] Address [address] [place] [address] Care Team Providers Care Billing Control Clerk Name Role Phone Amy Ascencio SYNTHETIC STAPLE EXTRUDER Primary Care Provider + Allergies No known active allergies Medications vitamin D3-vitamin K2 25 mcg (1,000 unit)-90 mcg tablet,disinteg rating Take by mouth Active vitamin B complex no.6-axshf-I-bi otin 1-60-300 mg-mg-mcg tabletIndicatio ns:Vitamin Deficiency Prevention [...] 01/23/2024 1:42 PM CDT Plan of Treatment Not on file Insurance [employer] MEDICARE MEDICARE [employer] Care Teams Billing Control Clerk Relationship Specialty Start Date End Date Amy Ascencio NP [address] [place] [address] PCP - General Nurse Practitioner 09/07/23
[2024-08-27 13:29] LABS: Albumin Level 4.6 g/dL (3.5-5.1); Estimated Glomerular Filt Rate 60; Glucose 115 mg/dL (65-110)
[2024-08-27 14:22] LABS: MRSA (PCR) NOT DETECTED (NOT DETECTE)
[2024-08-27 17:07] LABS: Hemoglobin A1C 5.5 % (<5.7)
== END 2024-08-27 11:59 | disposition home or self-care (01) ==
LOC: ANHSURGERY 12:02
PROVIDERS: Visit Provider Orthopaedic Surgery
DX: Z01.812 Encounter for preprocedural laboratory examination (principal); M17.12 Unilateral primary osteoarthritis, left knee
CPT/HCPCS: 80307; 82040; 82565; 82947; 83036; 85025; 87641

== ENCOUNTER 2024-09-23 00:44 | Day surgery (SDC) | payer MEDICARE, SELFPAY ==
--- NOTE | 2024-08-27 12:02 | PC.NURSE ---
Report to the Outpatient Waiting Room, entrance under the green pavilion located off [facility], at time _8:30 AM on date __09/23/24 . Planned Procedure Time: __10 :30 AM .? Time changes happen often and if your time is changed the preop area will call you the afternoon before. - You and your visitor will be asked to self-screen and do not enter if you have any COVID symptoms. Please call surgeon if you need to reschedule. - A mask is optional within the hospital at this time. Patients may have clear liquids (water, carbonated beverages, clear teas, apple juice) until 3 hours prior to surgery ( 7:30 AM) with a maximum of 20 ounces. - No food from midnight until time of surgery and no smoking, or chewing tobacco (or any form of nicotine). No chewing gum, candy or mints. Take only the following medications with a SIP of water on the morning of surgery: ____EYE DROP DO NOT STOP ANY OF YOUR OTHER PRESCRIPTION MEDICATIONS PRIOR TO SURGERY EXCEPT THE FOLLOWING Hold all vitamins and supplements for 3 days per anesthesiologist.LAST DOSE 09/19/24 Medications to discontinue per physician ALEVE HOLD 7 DAYS PRE OP PER DR LOAIZA Date to take last dose____09/15/24 MAY TAKE TYLENOL IF NEEDED FOR PAIN Please no make-up, nail south korean, hairspray, perfume, deodorant, or body powder the day of surgery.? No jewelry (including any body piercings) or valuables the day of surgery, leave them at home.? Please take a shower or bath the night before, or the morning of, surgery with an antibacterial soap.? Wear comfortable, loose fitting clothing.? Children are encouraged to wear pajamas. - Jewelry must be removed prior to entering the operating room.? Rings and piercings that are not removed may be cut off. - The hospital will not accept responsibility for valuables.? - Please leave all valuables, including medications, at home the day of surgery. If you are going home after surgery, a licensed moving van driver must drive you home.? - NO public transportation without another adult if you receive anesthesia. - We recommend that an adult stay with you for 24 hours following discharge. - We also recommend that you do not drive, make important decision, drink alcoholic beverages, or take any drugs that were not prescribed by your health care provider for at least 24 hours after your discharge time. For Pediatric surgeries, we recommend two adults accompany the child home. Follow any additional instructions given to you from your surgeon. VERBAL AND WRITTEN instructions given to __PATIENT and asked if any additional questions and then verbalized understanding. Patient advised to call surgeon office or pre surgery nurse liaison [phone] if any additional questions.
[2024-08-27 12:05] VITALS: BMI 27.3
[2024-08-27 12:43] VITALS: BP 128/61; PULSE 71; RESP 18; TEMP 36.7; O2SAT 99
[2024-09-23] VITALS (17 sets, daily range): BP systolic 100–139; BP diastolic 51–71; PULSE 58–73; RESP 10–18; TEMP 35.9–36.8; O2SAT 93–100; BMI 27.6
--- NOTE | ~2024-09-23 | XR_ITS ---
[id number] Ordering provider: Siva Méndez MD History: . POST OP LEFT TKA . Comparison: None. FINDINGS: BONES: No acute fracture or dislocation. JOINT SPACES: Total knee arthroplasty. SOFT TISSUES: Postoperative changes. IMPRESSION: No acute osseous abnormality left knee. Total knee arthroplasty. Reviewed, dictated and finalized at location A.
--- OUTSIDE RECORDS SUMMARY | 2024-09-23 00:46 | XMS_ITS | Data Portability ---
Author Organization [facility], [address] [facility] ([place]) Address [address] [place] [address] Care Team Providers Care Plastic Surgery Coordinator Name Role Phone ELDA JACK Primary Care Provider Assessment Encounter Date Assessment Date Assessment LastModified [...] she is going to talk to her senior test engineer about possibly having blepharoplasty. [email or web address] Not [...] [employer] on 0.75 % topical 2023 024 [email or web address] [id number], [address] [place], [address], 05/07/2024 11:37:45 Patient TargetsNo targets recorded. Patient InstructionsNo instructions recorded. Reason for Referral None Reported. Problems Name Problem SNOMED Code Status Onset Date Resolution Date Notes Provider Name and Address Organization Details Recorded Time Actinic keratosis Completed 04/29/2024 Charley Estrada [facility] 15:14:49 Seborrheic keratosis 951399306 Completed 04/29/2024 [employer] [facility] 01:37:22 Solar degenerati on 64254593 Completed 04/29/2024 Charley Estrada [facility] 4 15:15:04 Rosacea 055320914 Active 2023 Ophelia Flores [facility] 4 10:54:35 Seborrheic keratosis 576219502 Active 2023 [employer] [facility] 01:37:22 Problem Notes None recorded. Medical Equipment [...] SNOMED-CT Code Diagnosis ICD10 Code Diagnosis Note [id number] Krystina Suazo MD [facility]) [address] [place] [address] 05/07/2024 10:22:39 05/07/2024 11:02:49 Rosacea 977598339 L71.9 Seborrheic keratosis 394 582607 L82.1 Health Concerns Section Related Observation LastModified by Organization Detai ls LastModified Time None Recorded Concern Status LastModified by Organization Details LastModified Time None Recorded Advance Directives Directive None Recorded Payers Encounter Date Sequence Insurance Name Policy Number Policy Pena Covered Member ID Pena Member ID Guarantor Name 05/07/2024 1 [place] Trinidad Laguna [id number] 1 Trinidad Laguna 05/07/2024 2 COUNTRY FINANCIAL (MEDICARE SUPPLEMENT) Trinidad Laguna [id number] Trinidad Laguna OBGyn Episode No OBEpisode recorded.
--- OUTSIDE RECORDS SUMMARY | 2024-09-23 00:46 | XMS_ITS | Clinical Summary ---
Author Organization [facility] Address [address] [place] [address] Phone Care Team Providers Care Supervisor Lead Refinery Name Role Phone Amy Ascencio WEB DESIGN INSTRUCTOR, PERSONAL TRAINER Primary Care Pro vider Allergies No known active allergies Medications Multivitamin-Min erals Tablet Take 1 Tablet by mouth daily. Active B Bjvigsa-E-Gztly Acid (Na-Adina Rx) 1 MG Tablet Take 1 Tablet by mouth daily. Active other by Other route. Lion's genie powder daily for memory Active Active Problems Problem Noted Date Diagnosed Date Memory loss 03/14/2024 Overview (03/14/2024): SLADILSON 03-14-24 Seen at [facility] 12/2023, had MRI. Taking OTC supplement [...] = 0.6 oz pur e alcohol) Occasionally [employer] Utilities Answer Date Recorded In the past 12 months has e [employer], gas, oil, or water company threatened to [...] often do you attend chur ch or lutheran services? More than 4 times per year 03/14/2024 Do you belong to any clubs o r organizations such as cheondoism groups, unions, fraternal or athletic groups, or [...] and heating? Not hard at all 03/14/2024 [facility] of Occupat [facility] - Occupational Stress Questionnaire Answer Date [...] any time in the past 12 m [facility], were you homeless or living in a care home (including now)? No 03/14/2024 Comments No Sex [...] Description 03/24/2025 9:30 AM CDT Office Visit [facility] [address] [place] [address] Amy Ascencio, WEB DESIGN INSTRUCTOR, PERSONAL TRAINER [address] [place] [address] Health Maintenance Due Date Last [...] Procedure Name Priority Date/Time Associated Diagnosis Comments [facility] SCREENING BILATERAL DIGITAL W CAD W DOUGLAS Routine 03/20/2024 8:18 AM CDT Screening mammogram for breast cancer [facility] BONE DENSITOMETRY AXIAL SKELETON Routine 03/20/2024 8:18 AM CDT Post-menopausal from Last 3 Months or Most Recently Relevant to Health Maintenance Results * [facility] SCREENING BILATERAL DIGITAL W CAD W DOUGLAS (03/20/2024 8:18 AM CDT) Anatomical Region Laterality Modality breast Bilateral Mammography 03/20/2024 7:39 AM CDT Impressions 03/21/2024 9:53 AM CDT NO MAMMOGRAPHIC EVIDENCE OF MALIGNANCY. THEREFORE, CONTINUED ROUTINE ANNUAL MAMMOGRAM SCREENING IS RECOMMENDED UNLESS CLINICALLY INDICATED SOONER. ACR Birads Category: 1 - Negative. Electronically signed by: Eder Cintron MD 03/21/2024 09:53 AM CDT RP [facility] 03/21/2024 9:53 AM CDT EXAMINATION: [facility] SCREENING BILATERAL DIGITAL W CAD W DOUGLAS [...] IMG MAMMO ORDERAB LES Final Result * [facility] BONE DENSITOMETRY AXIAL SKELETON (03/20/2024 8:18 AM [...] Eder Cintron MD 03/21/2024 10:55 AM CDT [facility] 03/21/2024 10:55 AM CDT EXAMINATION: [facility] BONE [...] Cintron MD 03/21/2024 10:55 AM CDT RPWorkstation: [id number] us Amy Ascencio APRN, CNP IMPortia DEXA ORDERABL ES Final Result from Last 3 Months or Most Recently Relevant to Health Maintenance Insurance MEDICARE Member Subscriber Plan / Payer (Ef fective 2019-Present) Name:Trinidad Laguna Member ID:[id number] Relation to Subscriber:Self Name:Trinidad Laguna Subscriber ID:[id number] Payer ID:[id number] Group ID:Not on file Type:Not on file Address: [address] [facility] [employer], [place] [address] [facility] INS & FIN medical records administrator Care Teams Supervisor Lead Refinery Relationship Specialty Start Date End Date Amy Ascencio APRN, CNP [address] [place] [address] PCP - General Advanced Practice Nurse 03/13/22
--- OUTSIDE RECORDS SUMMARY | 2024-09-23 00:46 | XMS_ITS | Clinical Summary ---
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 Gender Identity Not on file Sexual Orientation [...] Colon Cancer Screening 1999 LIPID TESTING 1999 Pneumococcal Vaccine: 65+ Ye ars (1 of 1 - PCV) 2004 Zoster Vaccine (Recombinant Vaccine) (1 of 2) 2004 DEXA SCAN SCREENING 2019 Fall Risk Assessment 2019 Influenza Vaccine 12/27/2023 COVID-19 Immunization (1 [...] on patient's age to complete this topic Meningococcal B Vaccine Aged Out No l onger eligible based on patient's age to complete this topic ROTAVIRUS VACCINES Aged Out No longer eligible based on patient's age to complete this topic Insurance MEDICARE [employer] MEDICARE [employer] Care Teams Senior Medical Billing Specialist Relationship Specialty Start Date End Date Jagdish Motta MD [id number] [place] [address] PCP - General Obstetrics & Gynecology 10/06/11
--- OUTSIDE RECORDS SUMMARY | 2024-09-23 00:46 | XMS_ITS | Clinical Summary ---
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
--- OUTSIDE RECORDS SUMMARY | 2024-09-23 00:46 | XMS_ITS | Clinical Summary ---
Author Organization [facility] Address [address] [place] [address] Care Team Providers Care Buttonholer Name Role Phone Amy Ascencio SECURITY OPERATIONS CENTER ANALYST Primary Care Provider + Allergies No known active allergies Medications vitamin D3-vitamin K2 25 mcg (1,000 unit)-90 mcg tablet,disinteg rating Take by mouth Active vitamin B complex no.7-rwcdy-L-bi otin 1-60-300 mg-mg-mcg tabletIndicatio ns:Vitamin Deficiency Prevention [...] - Td or Tdap) 11/03/202501/2016, 09/25/2005 Insurance [employer] MEDICARE MEDICARE [employer] Care Teams Buttonholer Relationship Specialty Start Date End Date Amy Ascencio NP [address] [place] [address] PCP - General Nurse Practitioner 09/07/23
--- OUTSIDE RECORDS SUMMARY | 2024-09-23 00:46 | XMS_ITS | Referral Summary ---
Author Organization [facility] Address [address] [place] [address] Care Team Providers Care Financial Aid Director Name Role Phone Amy Ascenico FIBERGLASS FINISHER Primary Care Provider + Allergies No known active allergies Medications vitamin D3-vitamin K2 25 mcg (1,000 unit)-90 mcg tablet,disinteg rating Take by mouth Active vitamin B complex no.7-olfeh-Q-bi otin 1-60-300 mg-mg-mcg tabletIndicatio ns:Vitamin Deficiency Prevention [...] Plan of Treatment Not on file Insurance [employer] MEDICARE MEDICARE [employer] Care Teams Financial Aid Director Relationship Specialty Start Date End Date Amy Ascencio NP [address] [place] [address] PCP - General Nurse Practitioner 09/07/23
[2024-09-23] MEDS: ACETAMINOPHEN 500 MG TABLET 1000 MG PO (12:20)
[2024-09-23] MEDS: LACTATED RINGERS 1,000 ML 30 ML IV CONT ×3 (12:23→16:00)
[2024-09-23] MEDS: TRANEXAMIC ACID 1,000MG/ISO100 1,000 MG/100 ML BAG 200 MG IVPB (12:44)
--- NOTE | 2024-09-23 12:45 | P.PNAN_ITS ---
Anes - Initial Pre Proc Eval Procedure: Operation Date: 09/23/24 13:30 Proposed Procedures p Left Custom Total Knee Arthroplasty - Siva Méndez MD Date/Time: 09/23/24 12:45 Surgeon: Siva Méndez MD Pre Op Diagnosis: primary oa left knee Patient Data Age: 69 Gender: F Height: 1.65 m Weight: 75.2 kg Last Vital Signs Temp 98.3 F 09/23/24 11:52 Pulse 58 L 09/23/24 11:52 Resp 16 09/23/24 11:52 BP 136/65 09/23/24 11:52 Pulse Ox 100 09/23/24 11:52 O2 Del Method Room Air 09/23/24 11:52 Allergies Allergy/AdvReac Type Severity Reaction Status Date / Time No Known Allergies Allergy Verified 09/23/24 11:52 Home Medications ?Medication ?Instructions ?Recorded ?Confirmed ?Type multivitamin 1 tablet PO DAILY 02/15/23 09/23/24 History krill oil 1 tab-cap BYMOUTH DAILY 05/30/23 09/23/24 History naproxen sodium 220 mg tablet 220 mg PO BID PRN Pain 05/30/23 09/23/24 History (Aleve) PREVAGEN 1 tablet BYMOUTH DAILY 08/27/24 09/23/24 History carboxymethylcellulose sodium 1 % 1 drp EACH EYE DAILY 08/27/24 09/04/24 History eye liquid gel drops aspirin 81 mg tablet,delayed 81 mg PO BID 14 days #28 tabs 09/23/24 Rx release oxycodone-acetaminophen 5 mg-325 1 - 2 tablet PO Q4-6H PRN pain 7 09/23/24 Rx mg tablet days #30 tabs prednisone 5 mg tablet 5 mg PO DAILY 3 weeks #21 tabs 09/23/24 Rx Laboratory Tests 09/23/24 12:03 Blood Type Pending Antibody Screen Pending Patient hx anesthesia problems: none Family hx anesthesia problems: none Results Review: All pre-operative results and documents have been reviewed as part of the pre- operative evaluation. [facility] Past Medical History Medical History History of postoperative nausea and vomiting Surgical History Surgical History Status post total right knee replacement (~06/19/23) History of tonsillectomy History of bunionectomy History of abdominoplasty Family History Family History Grandparent Acute myocardial infarction Mother Family history of congestive heart failure Unknown Arthritis Cancer Other Diabetes mellitus Family history of arthritis Family history of malignant neoplasm of uterus Social History Social History Smoking status: Never smoker Second hand tobacco smoke exposure: No Additional smoking assessment comments: PT DENIES ALL FORMS OF TOBACCO USE Alcohol intake: current Drinks per week: 3 Alcohol use details: WINE Substance use: never Substance use type: does not use Do You Feel Safe in your Home?: Yes Lack of Transportation: No Lack of Food: Never True Current Housing: I Have Housing Concerned About Future Housing: No Difficulty Paying Gas/Electric Bills: No Difficulty Paying for Meds: No Currently Unemployed: No Education: High School Diploma/GED Difficulty w/ Childcare or Family Care: No Living arrangements: alone Additional living arrangements comments: STAYING WITH GINNA MEYER POST OP Spiritual care concerns: No Anes - Eval Final PreProcedure Day of Procedure 09/23/24 12:45 Patient weight: normal Lungs: normal air movement Airway: Mallampati scale class II Neurological: alert and oriented Last oral intake: >/= 8 hours ASA classification: II Emergent: no Anesthetic plan: proceed Anesthesia type and monitoring: general LMA and standard monitoring Results Review: All pre-operative results and documents have been reviewed as part of the pre- operative evaluation. OA, overall able to walk without cp or sob, 1-2 fos limited by knee pain. Informed Consent: The patient's anesthetic plan and its attendant risks and benefits were discussed with the patient/family/POA. Questions were solicited and answers provided to the satisfaction of the patient/family/POA.
--- NOTE | 2024-09-23 12:49 | WPDHPUPDATE1 ---
History and Physical Update Update Date/Time: 09/23/24 12:49 History and Physical has been reviewed, including an updated exam of the patient. There are NO changes in the patient's condition. Risks, benefits, and alternatives have been discussed and questions answered. Patient agrees to proceed with procedure.
[2024-09-23] MEDS: ceFAZolin 2 GM/D5W 50 ML 2 GM/50 ML BAG IVPB ×2 (13:09→20:42)
[2024-09-23] MEDS: SODIUM CHLORIDE 0.9% IV 37.7 ML, MORPHINE SULFATE INJ (*CRX) 2 MG, ROPivacaine HCL 1% 2... INFILTRATE (14:07)
[2024-09-23] MEDS: TRANEXAMIC ACID 1,000 MG/10 ML AMPUL 1000 MG IV PUSH (14:09)
[2024-09-23] MEDS: fentaNYL CITRATE INJ (*CRX) 100 MCG/2 ML VIAL 25 MCG IV PUSH ×8 (15:39→16:43)
--- NOTE | 2024-09-23 15:47 | W.PM.PROC2 ---
Procedure Note - Detailed Date of Procedure 09/23/24 Pre-op Diagnosis Left knee degenerative arthritis. Post-op Diagnosis Same Procedure Performed Total knee arthroplasty, left custom Surgeon Siva Méndez MD Railroad Signal Operator Alyssa Goodrich PA-C Anesthesia General Findings Extensive osteophytes. Additional polyethylene thickness used laterally. Description of Procedure Preoperative antibiotics were given. The limb was prepped and draped in the usual sterile fashion with a well-padded tourniquet high on the thigh. The limb was exsanguinated and the tourniquet inflated to 300 mmHg. A longitudinal incision was created just medial to the patella. A trivector approach to the knee was performed. Arthrotomy was taken down through the joint capsule. No significant releases were initially taken. The femur was exposed and the F1 jig was applied. The coring tool was used to remove the cartilage for the F2 jig to sit flush with the bone. The jig was pinned and the distal cut carefully taken. Caliper measurements confirmed appropriate bony resections according to the preoperative templated plan. The F4 cutting jig for the femur was applied, at the standard rotation. The AP and anterior chamfer cuts were taken. The F5 jig was applied and the posterior chamfer cuts were taken. The tibia was prepared using the T1 jig, after removing cartilage for the jig contact points. Proper alignment was checked with the alignment manny. The tibia was cut using the T1u guide. Gap balancing was performed. Gap measurements were taken and the knee was trialed. Excellent alignment and soft tissue balancing was confirmed. The posterior cruciate ligament was recessed along the proximal tibia. The patella was cut for resurfacing. Three lug holes were drilled. Meniscal remnants were removed. The trial components were assembled. Excellent range of motion and proper soft tissue balancing were confirmed throughout the full range of motion. Patellar tracking was excellent. The knee was copiously irrigated periodically throughout the procedure. The real implants were cemented into position. Excess cement was carefully removed. The wound was closed in layers with interrupted #1 Vicryl suture, 2-0 strata fix suture, 0 strata fix suture, 2-0 strata fix suture. Steri-Strips placed on the skin with the knee flexed. Sterile bulky dressing applied. The patient was brought to the recovery room in stable condition. There were no complications. Physician trust manager assistant, Alyssa Goodrich PA-C, required for surgery; including patient positioning, draping, tissue retraction, maintaining instrument position, wound closure, and dressing placement. Implants Conformis Custom total knee arthroplasty. Cemented. Cruciate retaining. 8D insert. 32 mm oval patella. Estimated Blood Loss 20 Tourniquet Time Total Tourniquet Time: 65 Drains No Complications No immediate complications Condition Stable Disposition PACU [facility] Billing Surgery - Charge Forward: Surgery Billing
[2024-09-23] MEDS: ASPIRIN 81 MG ENTERIC TABLET PO (17:38)
[2024-09-23] MEDS: oxyCODONE/ACETAMINOPHEN (*CRX) 10-325 MG TABLET 1 TAB PO (17:39)
[2024-09-23] MEDS: ACETAMINOPHEN 325 MG TABLET 650 MG PO ×2 (17:39→23:16)
[2024-09-23] MEDS: SENNA/DOCUSATE SODIUM TABLET 2 TAB PO (17:39)
--- NOTE | 2024-09-23 17:52 | ADMGEN ---
This patient, Trinidad Laguna, was admitted to [facility] Surg Room 316-02. Patient/family oriented to hospital policies and general routines including ID bracelet, bed and alarms, visiting hours, pain management, procedures, bathroom and other care routines, personal items, smoking policy, room service/diet, and visiting hours. Information on how to activate the Rapid Response Team has been discussed. Patient/Family are encouraged to report perceived risks to care and to ask questions if they do not understand what they are told or what they should do.
[2024-09-23] MEDS: SODIUM CHLORIDE 0.9% IV 1,000 ML 125 ML IV CONT (18:06)
[2024-09-23] MEDS: ONDANSETRON INJ 4 MG/2 ML VIAL IV PUSH (18:06)
[2024-09-23] MEDS: FAMOTIDINE 20 MG TABLET PO (20:42)
[2024-09-24] MEDS: ONDANSETRON INJ 4 MG/2 ML VIAL IV PUSH (00:41)
[2024-09-24 02:54] VITALS: BP 120/60; PULSE 67; RESP 14; TEMP 36.7; O2SAT 98
[2024-09-24] MEDS: ceFAZolin 2 GM/D5W 50 ML 2 GM/50 ML BAG IVPB ×2 (05:04→11:58)
[2024-09-24] MEDS: ACETAMINOPHEN 325 MG TABLET 650 MG PO ×2 (05:07→11:58)
[2024-09-24 06:36] VITALS: BP 110/57; PULSE 65; RESP 16; TEMP 36.5; O2SAT 98
[2024-09-24 06:53] LABS: Basophils Percent Auto 0.3 % (0.2-1.2); Hematocrit 32.2 % (37.0-47.0); Hemoglobin 10.3 g/dL (12.0-15.0); Immature Granulocyte Absolute 0.05 K/mm3 (0.00-0.031); Immature Granulocyte Percent A 0.5 % (0-0.5); Lymphocytes Percent Auto 10.5 % (18.3-44.2); Mean Corpuscular Hemoglobin 30.1 pg (26-34); Mean Corpuscular Volume 94.2 fl (80-100); Monocytes Absolute Auto 0.8 K/mm3 (0.1-0.6); Monocytes Percent Auto 8.8 % (2.6-8.5); Neutrophils Absolute Auto 7.6 K/mm3 (1.3-6.7); Neutrophils Percent Auto 79.9 % (45.5-73.1); Platelet Count Result 206 k/mm3 (150-375); Red Blood Count 3.42 M/mm3 (4.2-5.4); White Blood Count 9.6 K/mm3 (4.5-10.0)
[2024-09-24 07:05] LABS: Anion Gap 6 mmol/L (4-12); Blood Urea Nitrogen 12 mg/dL (7-17); Calcium 8.3 mg/dL (8.4-10.2); Carbon Dioxide 26 mmol/L (22-30); Chloride 104 mmol/L (98-107); Estimated CRCL calculation 58 ml/min; Estimated Glomerular Filt Rate > 60; Glucose 107 mg/dL (65-110); Potassium 4.6 mmol/L (3.4-5.0); Sodium 136 mmol/L (137-145)
[2024-09-24] MEDS: polyethylene glycoL 3350 17 GM POWD.PACK PO (09:40)
[2024-09-24] MEDS: CYCLOBENZAPRINE HCL 10 MG TABLET PO (09:41)
[2024-09-24] MEDS: predniSONE 5 MG TABLET PO (09:41)
[2024-09-24] MEDS: ASPIRIN 81 MG ENTERIC TABLET PO (09:41)
[2024-09-24] MEDS: SENNA/DOCUSATE SODIUM TABLET 2 TAB PO (09:41)
[2024-09-24] MEDS: oxyCODONE/ACETAMINOPHEN (*CRX) 10-325 MG TABLET 1 TAB PO (09:41)
[2024-09-24] MEDS: FAMOTIDINE 20 MG TABLET PO (09:41)
[2024-09-24 10:49] VITALS: O2SAT 97
== END 2024-09-24 13:20 | disposition home or self-care (01) ==
LOC: ANHSURGERY 11:24 → ANH3MEDSUR 17:10
PROVIDERS: Physician Assistant Surgical; Visit Provider Orthopaedic Surgery
PROC: (CPT 27447; principal; 2024-09-23 13:30)
DX: M17.12 Unilateral primary osteoarthritis, left knee (principal); M25.762 Osteophyte, left knee; Z79.1 Long term (current) use of non-steroidal anti-inflammatories (NSAID); Z79.82 Long term (current) use of aspirin; Z79.891 Long term (current) use of opiate analgesic; Z79.52 Long term (current) use of systemic steroids; Z98.890 Other specified postprocedural states; Z96.651 Presence of right artificial knee joint; Z80.49 Family history of malignant neoplasm of other genital organs; Z82.49 Family history of ischemic heart disease and other diseases of the circulatory system
CPT/HCPCS: 27447; 36415; 73560; 80048; 85025; 86850; 86900; 86901; 97110; 97161; 97165; A9270; C1713; C1776; C1789; J0171; J0690; J1100; J1885; J2270; J2405; J2704; J2795; J3010; J7030; J7120; J7512

== ENCOUNTER 2024-10-09 09:43 | Outpatient (CLI) | payer MEDICARE, SELFPAY ==
--- NOTE | ~2024-10-09 | XR_ITS ---
Left Knee Technique: AP, lateral, and sunrise views were obtained. Clinical History: Arthroplasty Findings: No fracture or dislocation is seen. Left knee arthroplasty in place. Soft tissues are unrem arkable. No joint effusion is seen. Impression: No acute abnormality. Left knee arthroplasty in place. Reviewed, dictated and finalized at location . Impression: No acute abnormality. Left knee arthroplasty in place.
--- OUTSIDE RECORDS SUMMARY | 2024-10-09 09:47 | XMS_ITS | Clinical Summary ---
Author Organization [facility] Address [address] [place] [address] Care Team Providers Care Financial Services Professional Name Role Phone Amy Ascencio CLOTH CHECKER Primary Care Provider + Allergies No known active allergies Medications vitamin D3-vitamin K2 25 mcg (1,000 unit)-90 mcg tablet,disinteg rating Take by mouth Active vitamin B complex no.3-rfzfc-D-bi otin 1-60-300 mg-mg-mcg tabletIndicatio ns:Vitamin Deficiency Prevention [...] - Td or Tdap) 11/03/202501/2016, 09/25/2005 Insurance [employer] MEDICARE MEDICARE [employer] Care Teams Financial Services Professional Relationship Specialty Start Date End Date Amy Ascencio NP [address] [place] [address] PCP - General Nurse Practitioner 09/07/23
--- OUTSIDE RECORDS SUMMARY | 2024-10-09 09:47 | XMS_ITS | Referral Summary ---
Author Organization [facility] Address [address] [place] [address] Care Team Providers Care Pilot Boat Deckhand Name Role Phone Amy Ascencio ADULT FAMILY HOME PROGRAM MANAGER Primary Care Provider + Allergies No known active allergies Medications vitamin D3-vitamin K2 25 mcg (1,000 unit)-90 mcg tablet,disinteg rating Take by mouth Active vitamin B complex no.0-yvzxw-A-bi otin 1-60-300 mg-mg-mcg tabletIndicatio ns:Vitamin Deficiency Prevention [...] Plan of Treatment Not on file Insurance [employer] MEDICARE MEDICARE [employer] Care Teams Pilot Boat Deckhand Relationship Specialty Start Date End Date Amy Ascencio NP [address] [place] [address] PCP - General Nurse Practitioner 09/07/23
--- OUTSIDE RECORDS SUMMARY | 2024-10-09 09:47 | XMS_ITS | Clinical Summary ---
Author Organization [facility] Address [address] [place] [address] Phone Care Team Providers Care Wafer Fab Technician Name Role Phone Amy Ascencio ASSISTANT OFFICE MANAGER, MAGNETIC TESTING TECHNICIAN Primary Care Pro vider Allergies No known active allergies Medications Multivitamin-Min erals Tablet Take 1 Tablet by mouth daily. Active B Ccjcrfl-Y-Dzeyz Acid (Na-Adina Rx) 1 MG Tablet Take 1 Tablet by mouth daily. Active other by Other route. Lion's genie powder daily for memory Active Active Problems Problem Noted Date Diagnosed Date Memory loss 03/14/2024 Overview (03/14/2024): [place] 03-14-24 Seen at [facility] 12/2023, had MRI. Taking OTC supplement [...] = 0.6 oz pur e alcohol) Occasionally [employer] Answer Date Recorded In the past 12 months has e [employer], gas, oil, or water company threatened to [...] often do you attend chur ch or church services? More than 4 times per year 03/14/2024 Do you belong to any clubs o r organizations such as denominational groups, unions, fraternal or athletic groups, or [...] and heating? Not hard at all 03/14/2024 [facility] [place] of Occupat [facility] - Occupational Stress Questionnaire Answer Date Recorded [...] any time in the past 12 m [facility], were you homeless or living in a nursing home (including now)? No 03/14/2024 Comments No [...] Description 03/24/2025 9:30 AM CDT Office Visit [facility] [address] [place] [address] Amy Ascencio, ASSISTANT OFFICE MANAGER, MAGNETIC TESTING TECHNICIAN [address] [place] [address] Health Maintenance Due Date Last [...] Procedure Name Priority Date/Time Associated Diagnosis Comments [facility] SCREENING BILATERAL DIGITAL W CAD W DOUGLAS Routine 03/20/2024 8:18 AM CDT Screening mammogram for breast cancer [facility] BONE DENSITOMETRY AXIAL SKELETON Routine 03/20/2024 8:18 AM CDT Post-menopausal from Last 3 Months or Most Recently Relevant to Health Maintenance Results * [facility] SCREENING BILATERAL DIGITAL W CAD W DOUGLAS (03/20/2024 8:18 AM CDT) Anatomical Region Laterality Modality breast Bilateral Mammography 03/20/2024 7:39 AM CDT Impressions 03/21/2024 9:53 AM CDT NO MAMMOGRAPHIC EVIDENCE OF MALIGNANCY. THEREFORE, CONTINUED ROUTINE ANNUAL MAMMOGRAM SCREENING IS RECOMMENDED UNLESS CLINICALLY INDICATED SOONER. ACR Birads Category: 1 - Negative. Electronically signed by: Eder Cintron MD 03/21/2024 09:53 AM CDT [facility] 03/21/2024 9:53 AM CDT EXAMINATION: [facility] SCREENING BILATERAL DIGITAL W CAD W DOUGLAS [...] IMG MAMMO ORDERAB LES Final Result * [facility] BONE DENSITOMETRY AXIAL SKELETON (03/20/2024 8:18 AM [...] Eder Cintron MD 03/21/2024 10:55 AM CDT [facility] 03/21/2024 10:55 AM CDT EXAMINATION: OMAIRA [...] Cintron MD 03/21/2024 10:55 AM CDT RPWorkstation: [id number] us Amy Ascencio APRN, CNP IMPortia DEXA ORDERABL ES Final Result from Last 3 Months or Most Recently Relevant to Health Maintenance Insurance MEDICARE [facility] INS & FIN global climate change researcher Care Teams Wafer Fab Technician Relationship Specialty Start Date End Date Amy Ascencio APRN, CNP [address] [place] [address] PCP - General Advanced Practice Nurse 03/13/22
--- OUTSIDE RECORDS SUMMARY | 2024-10-09 09:47 | XMS_ITS | Clinical Summary ---
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 Gender Identity Not on file Sexual [...] Screening 1999 LIPID TESTING 1999 Pneumococcal Vaccine: 50 and over (1 of 1 - PCV) 2004 Zoster Vaccine (Recombinant Vaccine) (1 of 2) 2004 DEXA SCAN SCREENING 2019 Fall Risk Assessment 2019 COVID-19 Immunization (1 - 2 - season) 2024 Influenza Vaccine 12/26/2024 RSV Vaccines (1 - 1-dose 75+ series) [...] age to complete this topic Insurance MEDICARE [employer] MEDICARE [employer] Care Teams Entry Level Receptionist Relationship Specialty Start Date End Date Jagdish Motta MD [id number] [place] [address] PCP - General Obstetrics & Gynecology 10/06/11
--- OUTSIDE RECORDS SUMMARY | 2024-10-09 09:47 | XMS_ITS | Clinical Summary ---
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 [place] Care Teams Load Dropper Relationship Specialty Start Date End Date Identified, No Provider PCP - General 09/03/19
--- OUTSIDE RECORDS SUMMARY | 2024-10-09 09:47 | XMS_ITS | Data Portability ---
Author Organization [facility], [address] [facility] [place] Address [address] [place] [address] Care Team Providers Care Pilot Highway Patrol Name Role Phone ELDA JACK Primary Care [...] she is going to talk to her director security management about possibly having blepharoplasty. [email or web address] Not [...] [employer] on 0.75 % topical 2023 024 [email or web address] [facility][id number], [address] [place], [address], 05/07/2024 11:37:45 Patient TargetsNo targets recorded. Patient InstructionsNo instructions recorded. Reason for Referral None Reported. Problems Name Problem SNOMED Code Status Onset Date Resolution Date Notes Provider Name and Address Organization Details Recorded Time Actinic keratosis Completed 04/29/2024 Charley Estrada [facility] 15:14:49 Seborrheic keratosis [id number] Completed 04/29/2024 [employer] [facility] 01:37:22 Solar degenerati on [id number] Completed 04/29/2024 Charley Estrada [facility] 4 15:15:04 Rosacea [id number] Active 2023 Ophelia Flores [facility] 4 10:54:35 Seborrheic keratosis 887018431 Active 2023 [employer] [facility] 01:37:22 Problem Notes None recorded. Medical [...] SNOMED-CT Code Diagnosis ICD10 Code Diagnosis Note [id number] Krystina Suazo MD [facility] [address] [place] [address] 05/07/2024 10:22:39 05/07/2024 11:02:49 Rosacea 943626254 L71.9 Seborrheic keratosis 394 546379 L82.1 Health Concerns Section Related Observation LastModified by Organization Detai ls LastModified Time None Recorded Concern Status LastModified by Organization Details LastModified Time None Recorded Advance Directives Directive None Recorded Payers Insurance Date Sequence Insurance Name Policy Number Policy Pena Covered Member ID Pena Member ID Guarantor Name 05/07/2024 1 [place] Trinidad Laguna [id number] Trinidad Laguna 05/07/2024 2 COUNTRY [employer]ANCIAL (MEDICARE SUPPLEMENT) Trinidad Laguna [id number] Trinidad Laguna OBGyn Episode No OBEpisode recorded.
== END 2024-10-09 09:44 | disposition home or self-care (01) ==
PROVIDERS: PCP Physician Assistant Surgical; Visit Provider Physician Assistant Surgical
DX: Z96.652 Presence of left artificial knee joint (principal); Z47.1 Aftercare following joint replacement surgery
CPT/HCPCS: 73562